=== PATIENT | female | born 1995 | race African-American/Black ===

== ENCOUNTER 2017-11-08 23:56 | Emergency (ER) | payer OTHER ==
[~2017-11-08] VITALS: Ht 172.7 cm; Wt 78.8 kg
[2017-11-09 00:04] VITALS: TEMP 36.9; Ht 172.7 cm; Wt 78.8 kg
[2017-11-09 01:21] LABS: BASO % 0.3 %; BASO ABS # 0.02 K/uL (0-0.2); EOS % 0.6 %; EOS ABS # 0.04 K/uL (0-0.5); HEMATOCRIT 31.2 % (37-47); HEMOGLOBIN 10.2 g/dL (12.0-16.0); IG# 0.01 K/uL (0.00-0.02); LYMPH % 29.7 %; MEAN CELL VOLUME 79.4 fL (80-100); MEAN CORPUSCULAR HGB CONC 32.7 g/dl (32-36); MEAN PLATELET VOLUME 11.1 fL (7.4-10.4); MONO % 7.4 %; NEUT % 61.9 %; NEUT ABS # 4.17 K/uL (1.4-6.5); PLATELET COUNT 236 K/uL (130-400); RED CELL DISTRIBUTION WIDTH CV 16.4 % (11.5-14.5); RED CELL DISTRIBUTION WIDTH SD 48.2 fL (36.4-46.3); WHITE BLOOD COUNT 6.74 K/uL (4.8-10.8)
[2017-11-09] MEDS ORDERED: BCPILLS PO (01:30)
[2017-11-09 01:38] LABS: CALCIUM 8.5 mg/dl (8.5-10.1); CREATININE 0.86 mg/dl (0.60-1.20); POTASSIUM 3.6 mmol/L (3.5-5.1)
--- NOTE | 2017-11-09 02:24 | EMERGENCY ROOM VISIT NOTE ---
History Report prepared by Neyda: Masha Perez Under the Supervision of: Dr. Sabra Chapa D.O. First contact with patient: 00:14 Chief Complaint: NAUSEA Stated Complaint: NAUSEA,DIZZINESS,DIARRHEA History of Present Illness The patient is a 22 year old female who presents to the Emergency Room with complaints of persistent nausea that began a couple weeks ago. The patient states that she has been experiencing abdominal pain, diarrhea, and dizziness. She notes her dizziness worsens when she is working on her computer. The patient denies having any vomiting, hematochezia, or leg numbness. She reports that her symptoms vary everyday, noting that they have been on and off for over a year. She denies changing her diet. The patient states that she currently takes control pills. Source of History: patient Onset: a couple weeks ago Position: other (global) Quality: other (nausea) Timing: other (persistent) Associated Symptoms: + abdominal pain, + diarrhea Note: Associated symptoms include: dizziness. Review of Systems See HPI for pertinent positives & negatives. A total of 10 systems reviewed and were otherwise negative. Past Medical & Surgical Medical Problems: (1) No Known Active Medical Problems Family History Diabetes mellitus Hypertension Social History Smoking Status: Never Smoker Smokeless Tobacco Use: No Alcohol Use: occasionally Drug Use: none Marital Status: single Housing Status: lives alone Occupation Status: employed Current/Historical Medications Scheduled Control Pills ( Control Pills), 1 TAB PO DAILY Allergies Coded Allergies: No Known Allergies (Unverified , 11/09/17) Physical Exam Vital Signs Date Time Temp Pulse Resp B/P (MAP) Pulse Ox O2 Delivery O2 Flow Rate FiO2 11/09/17 03:25 80 18 107/67 99 11/09/17 01:51 80 18 127/73 100 Room Air 11/09/17 00:04 36.9 80 16 120/85 99 Room Air Physical Exam HEENT: Head - normocephalic and atraumatic Pupils are equal, round, and reactive to light. Extraocular eye muscles are intact, and sclera are anicteric. Nose - moist nasal mucosa without discharge. Mouth - moist buccal mucosa. Oropharynx is nonerythematous and there is no tonsillar exudate or edema noted. Neck: Supple; no JVD, nuchal rigidity, cervical lymphadenopathy. Heart: Regular rate and rhythm. There is a normal S1 and S2 with no murmurs, clicks, or gallops appreciated. Lungs: Clear to auscultation bilaterally with no wheezes, rales, or rhonchi. Abdomen: Soft, completely nontender, nondistended, with good bowel sounds. There are no palpable pulsatile masses or hepatosplenomegaly. There is no guarding, rigidity, or rebound noted. Extremities: No evidence of cyanosis, clubbing, or edema. There are easily palpable peripheral pulses. Skin: warm and dry with good turgor and no rashes. Medical Decision & Procedures Laboratory Results 11/09/17 01:05 Red Blood Count 3.93, Mean Corpuscular Volume 79.4, Mean Corpuscular Hemoglobin 26.0, Mean Corpuscular Hemoglobin Concent 32.7, Mean Platelet Volume 11.1, Neutrophils (%) (Auto) 61.9, Lymphocytes (%) (Auto) 29.7, Monocytes (%) (Auto) 7.4, Eosinophils (%) (Auto) 0.6, Basophils (%) (Auto) 0.3, Neutrophils # (Auto) 4.17, Lymphocytes # (Auto) 2.00, Monocytes # (Auto) 0.50, Eosinophils # (Auto) 0.04, Basophils # (Auto) 0.02 11/09/17 01:05 Test 11/09/17 01:00 11/09/17 01:05 Urine Color YELLOW Urine Appearance CLEAR (CLEAR) Urine pH 6.0 (4.5-7.5) Urine Specific [place] 1.014 (1.000-1.030) Urine Protein NEG (NEG) Urine Glucose (UA) NEG (NEG) Urine Ketones NEG (NEG) Urine Occult Blood NEG (NEG) Urine Nitrite NEG (NEG) Urine Bilirubin NEG (NEG) Urine Urobilinogen NEG (NEG) Urine Leukocyte Esterase SMALL (NEG) Urine WBC (Auto) 5-10 /hpf (0-5) Urine RBC (Auto) 0-4 /hpf (0-4) Urine Hyaline Casts (Auto) 0 /lpf (0-5) Urine Epithelial Cells (Auto) >30 /lpf (0-5) Urine Bacteria (Auto) NEG (NEG) Urine Test NEG (NEG) White Blood Count 6.74 K/uL (4.8-10.8) Red Blood Count 3.93 M/uL (4.2-5.4) Hemoglobin 10.2 g/dL (12.0-16.0) Hematocrit 31.2 % (37-47) Mean Corpuscular Volume 79.4 fL (80-100) Mean Corpuscular Hemoglobin 26.0 pg (25-34) Mean Corpuscular Hemoglobin Concent 32.7 g/dl (32-36) Platelet Count 236 K/uL (130-400) Mean Platelet Volume 11.1 fL (7.4-10.4) Neutrophils (%) (Auto) 61.9 % Lymphocytes (%) (Auto) 29.7 % Monocytes (%) (Auto) 7.4 % Eosinophils (%) (Auto) 0.6 % Basophils (%) (Auto) 0.3 % Neutrophils # (Auto) 4.17 K/uL (1.4-6.5) Lymphocytes # (Auto) 2.00 K/uL (1.2-3.4) Monocytes # (Auto) 0.50 K/uL (0.11-0.59) Eosinophils # (Auto) 0.04 K/uL (0-0.5) Basophils # (Auto) 0.02 K/uL (0-0.2) RDW Standard Deviation 48.2 fL (36.4-46.3) RDW Coefficient of Variation 16.4 % (11.5-14.5) Immature Granulocyte % (Auto) 0.1 % Immature Granulocyte # (Auto) 0.01 K/uL (0.00-0.02) Anion Gap 3.0 mmol/L (3-11) Est Creatinine Clear Calc Drug Dose 112.2 ml/min Estimated GFR () 110.4 Estimated GFR (Non- 95.2 BUN/Creatinine Ratio 11.6 (10-20) Calcium Level 8.5 mg/dl (8.5-10.1) Thyroid Stimulating Hormone (TSH) 4.080 uIu/ml (0.300-4.500) Laboratory results per my review. ED Course 0022: Past medical records reviewed. The patient was evaluated in room B7. A complete history and physical exam was performed. An IV lock was initiated and labs were drawn as above. 0254:I reevaluated the patient and discussed test findings. The patient told me that she has a history of iron deficiency anemia, noting that she stopped taking her iron supplement because [facility] told her that her blood levels were fine. 0326: Upon reevaluation, the patient is resting comfortably. I discussed findings and results with her. She verbalized agreement of the treatment plan. The patient was discharged home. Medical Decision The patient is a 22 year old female who presents to the ED with persistent nausea. Differential diagnosis includes thyroid dysfunction, enteritis, IBS, dehydration, electrolyte abnormality, hypoglycemia, and . Slightly low MCV, The patient's laboratory results showed: urinalysis 5 to 10 WBC greater than 30 epithelial cells, normal TSH, normal renal function, low hemoglobin on 10.2, and no leukocytosis. This is a 22-year-old female patient who presents to the emergency department with dizziness, nausea, and abdominal cramping intermittently over the past year. The patient is presentation is vague. It has been intermittent for one year. It seems that her dizziness may worsened recently. This may be secondary to her anemia which appears to of worsened. She is no longer taking her iron supplement. I recommended that she start taking that again. I suggested the patient follow a very bland diet over the next couple of days to see if this has any impact on her abdominal cramping or nausea. The patient will follow-up with chest with regards to her iron supplement. I 've also suggest that she return to the ER if she has worsening symptoms. Medication Reconcilliation Current Medication List: was personally reviewed by me Impression Primary Impression: Anemia Additional Impressions: Dizziness Intermittent abdominal pain Scribe Attestation The scribe's documentation has been prepared under my direction and personally reviewed by me in its entirety. I confirm that the note above accurately reflects all work, treatment, procedures, and medical decision making performed by me. Departure Information Dispostion Home / Self-Care Referrals No Doctor, Assigned (PCP) Forms HOME CARE DOCUMENTATION FORM, IMPORTANT VISIT INFORMATION Patient Instructions My [facility] Problem Qualifiers Primary Impression: Anemia Anemia type: iron deficiency Iron deficiency anemia type: unspecified iron deficiency Qualified Codes: D50.9 - Iron deficiency anemia, unspecified
[2017-11-09 03:25] VITALS: BP 107/67; PULSE 80; O2SAT 99
== END 2017-11-09 03:26 | disposition home or self-care (01) ==
LOC: C.EDB 23:57
DX: D50.9 Iron deficiency anemia, unspecified (principal); R42 Dizziness and giddiness; R10.9 Unspecified abdominal pain; Z83.3 Family history of diabetes mellitus; Z82.49 Family history of ischemic heart disease and other diseases of the circulatory system

== ENCOUNTER 2018-05-06 08:59 | Emergency (ER) | payer OTHER ==
[~2018-05-06] VITALS: Ht 172.7 cm; Wt 79.0 kg
[~2018-05-06 08:59] MED LIST: BCPILLS PO
[2018-05-06 09:09] VITALS: TEMP 37; Ht 172.7 cm; Wt 79.0 kg
[2018-05-06] MEDS ORDERED: PROPARACAINE HCL 0.5% OP SOLN 15 ML BTL ONE (09:38)
--- NOTE | 2018-05-06 09:58 | EMERGENCY ROOM VISIT NOTE ---
ED Visit Note First contact with patient: 09:13 CHIEF COMPLAINT: Right eye pain 2 days HISTORY OF PRESENT ILLNESS: Patient is a 22-year-old female who presents emergency department for evaluation of right eye pain. She states that she had an eyelash in her eye about 2 nights ago. She was ru she reports that she had some irritation afterwards bbed area and was able to remove it., But thought it was just from rubbing her eye to hard and the foreign body. She had increased pain through the weekend and noted swelling of her eye today. She wears contacts and glasses, has been wearing her glasses only since the incident. She tried icing her face and then contact lens solution in the right eye. She rates her discomfort a 7/10. She denies any continued foreign body sensation. She has some ear tearing, but no purulent discharge from the eye. She is slightly photophobic and vision is blurry. No symptoms in the left eye. REVIEW OF SYSTEMS: Review of systems as per HPI. All other systems reviewed were negative. At least 6 systems reviewed. PMH: Electronic medical records are reviewed and summarized as above/below. See Problem List. SOCIAL HISTORY: Patient lives at home. 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 Non-smoker. PHYSICAL EXAM: Vital Signs: Reviewed Nurse's notes. VISUAL ACUITY: 20/200 in the right eye, 20/20 in the left eye with correction. GENERAL: Patient is a well-appearing 22-year-old female who is awake and alert and uncomfortable due to her right eye symptoms. EYES: The pupils are round, equal, and react to light. EOMs are full. There is discharge of clear tears from the right eye which is mildly injected, photophobia precludes exam. There is no foreign body visible under the eyelid even after lid eversion. No foreign body was seen embedded in the cornea. The cornea was clear and no hyphema was seen. Fluorescein uptake was observed with ultraviolet light at 4:00 with a small, linear abrasion. EMERGENCY DEPARTMENT COURSE: The fluorescein was irrigated away and Ciloxan drops were instilled in the right eye. Patient appears to have a small corneal abrasion of the right eye, possibly related to the foreign body or contact lens. She does not appear to have a corneal ulcer. I do not suspect conjunctivitis. The patient will be placed on Ciloxan drops. Supportive care measures were discussed. She was advised to avoid wearing her contact lenses for about a week. She was advised to return to the emergency department for worsening symptoms, otherwise she can follow-up with her eye doctor for recheck later this week. Medication reconciliation: I attest that I have personally reviewed the patient' s current medication list. Blood pressure screening : Patient was found to have normal blood pressure on screening and does not require follow-up. Problem List Medical Problems: (1) Anemia Status: Resolved (2) Anemia Status: Chronic (3) Dizziness Status: Resolved (4) Dizziness Status: Resolved (5) Intermittent abdominal pain Status: Resolved Current/Historical Medications Scheduled Control Pills ( Control Pills), 1 TAB PO DAILY Allergies Coded Allergies: No Known Allergies (Unverified , 05/06/18) Vital Signs Date Time Temp Pulse Resp B/P (MAP) Pulse Ox O2 Delivery O2 Flow Rate FiO2 05/06/18 10:11 78 18 121/74 96 05/06/18 09:09 37.0 88 20 125/81 95 Room Air Medications Administered Medications (Trade) Dose Ordered Sig/Elizabeth Route Start Time Stop Time Status Last Admin Dose Admin Proparacaine HCl (Alcaine 0.5% Oph Soln) 225 drops STK-MED ONCE .ROUTE 05/06/18 09:38 05/06/18 09:39 DC 05/06/18 09:40 225 DROPS Ciprofloxacin HCl (Ciprofloxacin 0.3% Op Soln) 2 drops Q4H ONCE OPR 05/06/18 10:00 05/06/18 10:01 DC 05/06/18 10:05 2 DROPS Departure Information Impression Primary Impression: Corneal abrasion, right Referrals [facility] (PCP) Patient Instructions My [facility] Additional Instructions Ciloxan 2 antibiotic eyedrops in the right eye every 4 hours while awake for 7 days. Ibuprofen(Motrin, Advil) may be used for fever or pain. Use 600mg every six hours as needed. Take with food. Avoid using more than 2400mg in a 24 hour period. Do not use 2400mg per day for more than three consecutive days without physician direction. Prolonged inappropriate use can lead to stomach upset or ulcers. (AND/OR) Acetaminophen(Tylenol) may be used for fever or pain. Use 1000mg every six hours as needed. Avoid using more than 3000mg in a 24 hour period. You may also intermittently apply a cool compress and wear sunglasses for additional relief. If you wear contacts, no contact lens use for 7 days. Start with all-new contact lenses, solution, rewetting drops and cosmetics. Follow-up with an gas pipe layer if no improvement within 36-48 hrs. Return to the ED for worsening pain or changes in vision. Problem Qualifiers Primary Impression: Corneal abrasion, right Encounter type: initial encounter Qualified Codes: S05.01XA - Injury of conjunctiva and corneal abrasion without foreign body, right eye, initial encounter
[2018-05-06] MEDS ORDERED: CIPROFLOXACIN HCL 0.3% OP SOLN 2.5 ML BTL OPR ONE (10:00)
[2018-05-06 10:11] VITALS: BP 121/74; PULSE 78; O2SAT 96
== END 2018-05-06 10:12 | disposition home or self-care (01) ==
LOC: C.EDB 09:00
DX: S05.01XA Injury of conjunctiva and corneal abrasion without foreign body, right eye, initial encounter (principal); X58.XXXA Exposure to other specified factors, initial encounter